=== PATIENT | female | born 1995 | race Caucasian/White ===

== ENCOUNTER 2023-10-07 23:30 | Emergency (ER) | payer MEDICAID, OTHER ==
[~2023-10-07] VITALS: Ht 175.3 cm; Wt 63.6 kg
[2023-10-08 00:18] VITALS: TEMP 97.6
[2023-10-08 01:15] VITALS: PULSE 82; RESP 16; O2SAT 96
[2023-10-08] MEDS ORDERED: MORPHINE SULFATE 4 MG/ML SYR/VIAL IV ONE (02:00)
[2023-10-08] MEDS ORDERED: ONDANSETRON HCL 4 MG/2 ML VIAL IV ONE (02:00)
[2023-10-08 02:28] VITALS: O2SAT 98
[2023-10-08 02:54] VITALS: BP 108/68; PULSE 77; RESP 16
[2023-10-08] MEDS ORDERED: HYDR1TAB97 PO (03:02)
== END 2023-10-08 03:58 | disposition home or self-care (01) ==
LOC: ER 23:30 → EDBD 23:30 → ER 10-08 03:58
DX: M25.562 Pain in left knee (principal); W01.0XXA Fall on same level from slipping, tripping and stumbling without subsequent striking against object, initial encounter; Y93.89 Activity, other specified; Y92.89 Other specified places as the place of occurrence of the external cause; Y99.8 Other external cause status
CPT/HCPCS: 29505; 73562; 96374; 96375; 99284; J2270; J2405

== ENCOUNTER 2024-02-24 21:41 | Emergency (ER) | payer MEDICAID ==
[~2024-02-24] VITALS: Ht 154.9 cm; Wt 68.0 kg
[~2024-02-24 21:41] MED LIST: HYDR1TAB97 PO
[2024-02-24 21:50] VITALS: BP 143/74; PULSE 94; RESP 18; O2SAT 96
[2024-02-24] MEDS: SODIUM CHLORIDE 0.9% 1,000 ML IV ONE (22:00)
[2024-02-25] MEDS ORDERED: IBUP-1456 PO (01:26)
[2024-02-25] MEDS ORDERED: ACET-1304 PO (01:26)
[2024-02-25] MEDS: HYDROcodone-ACET 5/325MG TAB PO ONE (02:23)
[2024-02-25] MEDS: ONDANSETRON HCL 4 MG/2 ML VIAL IV ONE (02:23)
== END 2024-02-25 02:24 | disposition home or self-care (01) ==
LOC: ER 21:41 → EDBD 21:41 → ER 02-25 02:24
DX: S00.03XA Contusion of scalp, initial encounter (principal); Z79.1 Long term (current) use of non-steroidal anti-inflammatories (NSAID); Z79.899 Other long term (current) drug therapy; W01.0XXA Fall on same level from slipping, tripping and stumbling without subsequent striking against object, initial encounter; Y93.89 Activity, other specified; Y92.009 Unspecified place in unspecified non-institutional (private) residence as the place of occurrence of the external cause; Y99.8 Other external cause status
CPT/HCPCS: 70450; 72125

== ENCOUNTER 2024-05-04 02:32 | Emergency (ER) | payer MEDICAID ==
[~2024-05-04] VITALS: Ht 152.4 cm; Wt 80.0 kg
[~2024-05-04 02:32] MED LIST changes: +ACET-1304 PO; +IBUP-1456 PO
[2024-05-04 02:43] VITALS: BP 114/81; PULSE 91; RESP 16; O2SAT 97
== END 2024-05-04 03:58 | disposition left against medical advice (07) ==
LOC: EDUNIT# 02:32 → ER 02:32
DX: R56.9 Unspecified convulsions (principal)

== ENCOUNTER 2024-06-14 03:03 | Emergency (ER) | payer MEDICAID ==
[~2024-06-14] VITALS: Ht 154.9 cm; Wt 92.9 kg
[2024-06-14 03:20] VITALS: BP 124/85; PULSE 94; RESP 20; O2SAT 96
== END 2024-06-14 04:12 | disposition left against medical advice (07) ==
LOC: ER 03:03
DX: Z00.00 Encounter for general adult medical examination without abnormal findings (principal); Z53.21 Procedure and treatment not carried out due to patient leaving prior to being seen by health care provider

== ENCOUNTER 2024-11-18 23:47 | Emergency (ER) | payer MEDICAID ==
[~2024-11-18] VITALS: Ht 170.2 cm; Wt 100.0 kg
[2024-11-18 23:50] VITALS: BP 128/77; RESP 18; O2SAT 100
[2024-11-19] MEDS ORDERED: KETOROLAC TROMETH 30 MG/ML 1ML VIAL IV ONE (00:15)
[2024-11-19] MEDS ORDERED: ONDANSETRON HCL 4 MG/2 ML VIAL IV ONE (00:15)
[2024-11-19 00:31] VITALS: PULSE 82
[2024-11-19 00:31] LABS: Hemoglobin 13.9 g/dL (12.2-16.2); Mean Corpuscular Hemoglobin 28.3 pg (28.0-32.0); Mean Corpuscular Hgb Conc. 33.9 g/dL (32.0-36.0); Mean Corpuscular Volume 83.5 fL (80.0-100.0); Platelet Count (auto) 452 10^3/uL (140-450); Red Blood Cells 4.91 10^6/uL (4.0-5.20); Red Cell Distribution Width 13.7 % (11.8-14.3)
--- NOTE | 2024-11-19 00:31 | ED.PDOC ---
HPI Comments 29-year-old female who came to ER via EMS for chest pains. Patient has history of seizures and anxiety. States about an hour ago, she was at home which she developed unprovoked substernal chest pains, pressure, nonradiating, 6/10 intensity, associated with the abdominal pain, nausea, vomiting and diarrhea. Patient feels like she is having anxiety attack. Patient was given aspirin while en route to the ER. Patient admits to have been drinking alcohol earlier. Chief Complaint: Chest Pain Time Seen by MD: 00:28 Reviewed Notes: Electric [employer] Cart [employer]r Notes Allergies: Coded Allergies: Latex (Verified Allergy, Unknown, 11/19/24) Home Meds Active Scripts Acetaminophen (Tylenol Extra Strength) 500 Mg Tab, 1000 MG PO Q6HP PRN, #30 TAB Prov:ROCKY ZUNIGA MD 02/25/24 Ibuprofen (Ibuprofen) 800 Mg Tab, 1 TAB PO Q8HP PRN, #30 TAB 1 Refill Prov:ROCKY ZUNIGA MD 02/25/24 Hydrocodone-Acetaminophen (Hydrocodone/Acetaminophen 5-325 mg) 1 Tab Tab, 1 TAB PO Q4HP PRN, #10 TAB Prov:SEVERINO HERNANDEZ PAC 10/08/23 Information Source: Patient, Emergency Med Personnel Mode of Arrival: EMS Severity: Moderate Timing: Minutes Duration: Since onset Prehospital treatment: 12 Lead EKG, ASA Location: Substernal Radiation: No Radiation Quality: Pressure Onset: With Light Exertion Cardiac Risk Factors: None PE Risk Factors: None History of: Similar pain in past Associated Signs and Symptoms: Abdominal Pain, N/V Review of Systems REVIEW OF SYSTEMS: No fever, no chills, or fatigue HEENT: No sore throat, no earache, no congestion, no neck pain. Cardiac: (+)chest pain. No palpitations. Lungs: No shortness of breath, no cough. GI: (+) nausea, vomiting, diarrhea, abdominal pain : No dysuria, frequency, or urgency. No hematuria. Musculoskeletal: No joint pain , no joint swelling, no extremity edema. Skin: No rash, no itching. Neuro: (+) headache, no dizziness, no weakness Vital Signs Vital Signs Date Time Temp Pulse Resp B/P (MAP) Pulse Ox O2 Delivery O2 Flow Rate FiO2 11/19/24 00:31 82 11/18/24 23:50 98.0 18 128/77 (94) 100 Physical Exam General: Awake, alert and oriented. No acute distress. Skin: Skin in warm, dry and intact. Appropriate color for ethnicity. Nailbeds pink with no cyanosis. HEENT: The head is normocephalic and atraumatic. Conjunctivae are clear without exudates or hemorrhage. Sclera is non-icteric. EOM are intact. No signs of nystagmus. Eyelids are normal in appearance without swelling or lesions. Oral mucosa is pink and moist Neck: The neck is supple with normal range of motion. No JVD. Cardiac: Heart rate and rhythm are normal. No murmurs, gallops, or rubs are auscultated. Respiratory: No signs of respiratory distress. Lung sounds are clear in all lob es bilaterally without rales, ronchi, or wheezes. Abdominal: Abdomen is soft, non-tender without distention. Bowel sounds are p resent and normoactive in all four quadrants. Extremities: Upper and lower extremities are atraumatic in appearance without de formity or edema. Neurological: The patient is awake, alert and oriented to person, place, and time with normal speech. Speech is clear. There is no facial asymmetry. Psychiatric: Appropriate mood and affect. Good judgement and insight. No visual or auditory hallucinations. Past Medical History PAST MEDICAL HISTORY: Anxiety, Seizures Surgical History: STATION MASTER History: Denies all STATION MASTER Hx Family History Family History: Family hx of DM, Family hx of Cancer, Family hx of heart shivam, Family hx of HTN Social History Smoker: Non-Smoker Alcohol: Occasionally Drugs: Denies Drug Use Lives In: Home EKG EKG : Pulse Rate (adult): 82 Cardiac Rhythm: NSR Hypertrophy: LAE Was a procedure done? Was a procedure done?: No CP Differential Dx Differential Diagnosis: Angina, Anxiety / Panic Attack, Hyperventilation Differential Diagnosis: Angina, Chest Wall Pain, Costochondritis, Esophageal reflux/spasm, Gastritis, Myocardial Infarction, Pneumonia X-Ray, Labs, Meds, VS Vital Signs Date Time Temp Pulse Resp B/P (MAP) Pulse Ox O2 Delivery O2 Flow Rate FiO2 11/19/24 00:31 82 11/18/24 23:50 98.0 85 18 128/77 (94) 100 Lab Test 11/18/24 23:56 Range/Units White Blood Count 9.0 4.4-10.8 10^3/uL Red Blood Count 4.91 4.0-5.20 10^6/uL Hemoglobin 13.9 12.2-16.2 g/dL Hematocrit 41.0 36.0-46.0 % Mean Corpuscular Volume 83.5 80.0-100.0 fL Mean Corpuscular Hemoglobin 28.3 28.0-32.0 pg Mean Corpuscular Hemoglobin Concent 33.9 32.0-36.0 g/dL Red Cell Distribution Width 13.7 11.8-14.3 % Platelet Count 452 H 140-450 10^3/uL Mean Platelet Volume 7.7 6.9-10.8 fL Neutrophils (%) (Auto) 37.0-80.0 % Lymphocytes (%) (Auto) 10.0-50.0 % Monocytes (%) (Auto) 0.0-12.0 % Basophils (%) (Auto) 0.0-2.0 % Neutrophils # (Auto) 1.6-8.6 10 ^3/uL Lymphocytes # (Auto) 0.4-5.4 10 ^3/uL Monocytes # (Auto) 0-1.3 10 ^3/uL Differential Total Cells Counted 100.0 100 Neutrophils % (Manual) 37 37.0-80.0 Band Neutrophils % (Manual) 0 Lymphocytes % (Manual) 57 H 10.0-50.0 Monocytes % (Manual) 5 0-12 Eosinophils % (Manual) 1 0-7 Basophils % (Manual) 0 0.0-2.0 Metamyelocytes % (manual) 0 Myelocytes % (Manual) 0 Promyelocytes % (Manual) 0 Blast Cells % (Manual) 0 Reactive Lymphocytes 0 Smudge Cells 1 /100 WBC Platelet Estimate Increased Sodium Level 145 136-145 mmol/L Potassium Level 3.5 3.5-5.1 mmol/L Chloride Level 112 H 98-107 mmol/L Carbon Dioxide Level 21 20-31 mmol/L Anion Gap 12 5-15 Blood Urea Nitrogen 10 9-23 mg/dL Creatinine 0.76 0.550-1.02 mg/dL Glomerular Filtration Rate Calc 108 >90 mL/min BUN/Creatinine Ratio 13.2 10.0-20.0 Serum Glucose 104 74-106 mg/dL Calcium Level 9.5 8.7-10.4 mg/dL Magnesium Level 2.1 1.6-2.6 mg/dL Troponin I High Sensitivity < 3 L </=34 ng/L B-Type Natriuretic Peptide 11.53 0-100 pg/mL Lipase 62 H 12-53 U/L Plasma/Serum Blood Alcohol 233.3 H <10 mg/dL Time of 1ST Reevaluation: 00:23 Reevaluation 1ST: Unchanged Patient Education/Counseling: Diagnosis, Treatment Family Education/Counseling: No Family Present Departure 1 Departure Time of Disposition: 01:07 Impression: Primary Impression: Eloped from emergency department Additional Impressions: Chest pain Abdominal pain Disposition: LEFT AWOL/ELOPED Condition: Stable Comments 29-year-old female who presented to the emergency department with abdominal pain and chest pain. Patient eloped from the emergency department prior to completing testing, prior to re-evaluation. - I reviewed the following notes from the pt's past medical encounters: N/A The following tests were ordered, and results were reviewed by me: (See diagnostic results section) Additional information was gathered from interviewing the following independent historians: EMS I reviewed and agreed with the following test results read by other providers: N/A I discussed treatments and results with medical personnel and: N/A Critical Care Note Critical Care Time?: No Stability Stability form required: No Heart Score Heart Score: Heart Score Response (Comments) Value History Slightly Suspicious 0 EKG Normal 0 Age <45 0 Risk Factors No known risk factors 0 Troponin Normal limit 0 Total 0 I personally scribed for MERE DEWEY MD ([email or web address]) on 11/19/24 at 00:31. Electronically submitted by Favian Byrne ([email or web address]). MERE DEWEY MD Nov 19, 2024 00:31
[2024-11-19 01:04] LABS: Potassium 3.5 mmol/L (3.5-5.1); Sodium 145 mmol/L (136-145)
[2024-11-19 01:05] LABS: Anion Gap 12 (5-15); Calcium 9.5 mg/dL (8.7-10.4); Carbon Dioxide 21 mmol/L (20-31)
[2024-11-19 01:07] LABS: Chloride 112 mmol/L (98-107)
[2024-11-19 01:10] LABS: BUN/Creatinine Ratio 13.2 (10.0-20.0); Band Neutrophils % (manual) 0; Basophils % (manual) 0 (0.0-2.0); Blast Cells 0; Blood Urea Nitrogen 10 mg/dL (9-23); Glucose 104 mg/dL (74-106); Metamyelocytes % 0; Myelocytes % 0; Promyelocytes % 0; Reactive Lymphocytes 0
[2024-11-19 01:11] LABS: Magnesium 2.1 mg/dL (1.6-2.6)
[2024-11-19 01:48] LABS: Lipase 62 U/L (12-53)
[2024-11-19 02:02] LABS: Blood Alcohol 233.3 mg/dL (<10)
[2024-11-19 02:19] LABS: Eosinophils % (manual) 1 (0-7); Lymphocytes % (manual) 57 (10.0-50.0); Monocytes % (manual) 5 (0-12); Smudge Cells 1 /100 WBC
[2024-11-19 02:20] LABS: Platelet Estimate Increased
--- NOTE | 2024-11-19 05:40 | ECG ---
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
== END 2024-11-19 01:07 | disposition left against medical advice (07) ==
LOC: EDBD 23:47 → ER 23:47
DX: R07.89 Other chest pain (principal); R10.9 Unspecified abdominal pain; R11.2 Nausea with vomiting, unspecified; R19.7 Diarrhea, unspecified; Z79.899 Other long term (current) drug therapy
CPT/HCPCS: 36415; 80048; 80320; 83690; 83735; 83880; 84484; 85007; 85027; 93005